=== PATIENT | male | born 1955 | race Two or more races ===

== ENCOUNTER → 2022-09-06 | Day surgery (SDC) | payer MEDICAID ==
[~2022-09-06] VITALS: Ht 175.3 cm; Wt 77.1 kg
[~2022-09-06] MED LIST: ALFU10TA9 PO; ATOR40TA70 PO; BUPIVACAINE HCL/PF 0.5% (5MG/ML) 30ML ONE; CEFAZOLIN SODIUM 1000MG/VIAL ONE; CYCL10TA21 PO; FENTANYL CITRATE/PF 50MCG/ML 2ML VIAL ONE; GLYCOPYRROLATE 0.2 MG/ML 2ML VIAL ONE; HYDR-4009 PO; HYDRALAZINE 20MG/ML VIAL IV SCH; HYDROCODONE/ACETAMINOPHEN 5/325MG TABLET PO PRN; LACTATED RINGERS 1,000 ML IV SCH; MIDAZOLAM HCL 2 MG/2 ML VIAL ONE; NEOSTIGMINE METHYLSULFATE 1MG/ML 10 ML VIAL ONE; PROPOFOL 200MG/20ML VIAL IV ONE; ROCURONIUM BROMIDE 10MG/ML VIAL 5ML IV ONE
[2022-09-06] MEDS: FENTANYL CITRATE/PF 50MCG/ML 2ML VIAL IV PRN ×4 (09:13→10:02)
[2022-09-06 10:22] VITALS: BP 170/112
== END | disposition home or self-care (01) ==
LOC: OR 05:00
PROVIDERS: ATTEND Surgery
DX: K40.90 Unilateral inguinal hernia, without obstruction or gangrene, not specified as recurrent (principal); K21.9 Gastro-esophageal reflux disease without esophagitis; E78.00 Pure hypercholesterolemia, unspecified; Z87.891 Personal history of nicotine dependence; Z79.899 Other long term (current) drug therapy; Z98.890 Other specified postprocedural states; Z20.822 Contact with and (suspected) exposure to COVID-19
CPT/HCPCS: 49505; 87426; 93005; C1781; C9803; J0360; J0690; J2250; J2704; J2710; J3010; J3490